=== PATIENT | female | born 1935 | race Caucasian/White ===

== ENCOUNTER 2019-11-25 12:38 | Emergency (ER) | payer MEDICARE ==
[~2019-11-25] VITALS: Ht 167.6 cm; Wt 50.0 kg
[2019-11-25] MEDS ORDERED: LIDOCAINE-MPF 1%, 5ML ONE (13:21)
[2019-11-25] MEDS ORDERED: DIPH,PERTUSS(ACELL),TET VAC/PF 0.5 ML IM-VACC ONE ×2 (13:22→13:30)
[2019-11-25] MEDS ORDERED: LIDOCAINE 1%-EPI 1:100K, 20ML SQ ONE (13:30)
[2019-11-25] MEDS ORDERED: L.E.T SOLUTION TP ONE (13:30)
[2019-11-25 14:39] VITALS: BP 180/89
--- NOTE | 2019-11-25 14:41 | NUR ---
PT RESTING COMFORTABLY ON GURNEY. DAUGHTER AT BEDSIDE. PT GOING TO CT.
--- NOTE | 2019-11-25 15:14 | NUR ---
PROVIDER AT BEDSIDE FOR SUTURES
--- NOTE | 2019-11-25 15:14 | NUR ---
ALL RESULTS ARE BACK AT THIS TIME. CHART UP FOR RECHECK.
--- NOTE | 2019-11-25 15:39 | NUR ---
PROVIDER AT BEDSIDE TO UPDATE PT AND DAUGHTER ON POC.
[2019-11-25] MEDS ORDERED: NEOSPORIN OINT. PKT 1 PACKET ONE (15:49)
== END 2019-11-25 16:41 | disposition home or self-care (01) ==
LOC: ED 14:20
DX: S01.81XA Laceration without foreign body of other part of head, initial encounter (principal); S60.221A Contusion of right hand, initial encounter; S60.051A Contusion of right little finger without damage to nail, initial encounter; S70.02XA Contusion of left hip, initial encounter; R06.02 Shortness of breath; W01.0XXA Fall on same level from slipping, tripping and stumbling without subsequent striking against object, initial encounter; Y93.89 Activity, other specified; Y92.098 Other place in other non-institutional residence as the place of occurrence of the external cause; Y99.8 Other external cause status
CPT/HCPCS: 12011; 70450; 71045; 71250; 72125; 72190; 99285

== ENCOUNTER → 2020-01-31 | Outpatient (CLI) | payer MEDICARE | END | disposition home or self-care (01) | LOC: LAB 14:58 | PROVIDERS: ATTEND Internal Medicine | DX: L40.59 Other psoriatic arthropathy (principal); R53.83 Other fatigue; Z79.899 Other long term (current) drug therapy | CPT/HCPCS: 36415; 86480 ==